=== PATIENT | female | born 2000 | race African-American/Black ===

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

== ENCOUNTER 2024-05-31 21:38 | Emergency (ER) | payer OTHER ==
[2024-05-31 21:47] VITALS: BP 105/68; PULSE 61; RESP 14; TEMP 98.2; BMI 25.9
[2024-05-31] MEDS ORDERED: IBUPROFEN 400 MG TABLET (FP) PO ONE (22:32)
[2024-05-31] MEDS ORDERED: ACETAMINOPHEN 325 MG TABLET (FP) ONE (22:32)
[2024-05-31] MEDS: ACETAMINOPHEN 325 MG TABLET (FP) PO ONE (22:34)
[2024-05-31] MEDS: IBUPROFEN 400 MG TABLET (FP) PO ONE (22:34)
== END 2024-06-01 00:30 | disposition home or self-care (01) ==
LOC: JER 21:38 → JERFT 21:38 → JER 06-01 00:30
DX: R60.0 Localized edema (principal); M25.562 Pain in left knee
CPT/HCPCS: 93971-TC; 99284-25